=== PATIENT | male | born 1970 | race Caucasian/White ===

== ENCOUNTER 2016-04-10 22:17 | Inpatient (IN) | payer OTHER ==
[~2016-04-10] VITALS: Ht 180.3 cm; Wt 100.0 kg
[~2016-04-10 22:17] MED LIST: ACET-1175 PO
[2016-04-10] MEDS ORDERED: ONDANSETRON INJ 2 MG/ML 2 ML VIAL IV STA (22:35)
[2016-04-10] MEDS ORDERED: IBUP-1277 PO (22:36)
[2016-04-10] MEDS ORDERED: MULT-506 PO (22:36)
[2016-04-10] MEDS ORDERED: MoRPHine SULFATE 4 MG/ML 1 ML CARP\\VIAL IV ONE (22:45)
[2016-04-10] MEDS ORDERED: PANTOprazole INJ 40 MG in SYRINGE 0 ML IV ONE (22:45)
[2016-04-10] MEDS ORDERED: GI COCKTAIL PO ONE (22:45)
[2016-04-10] MEDS ORDERED: SODIUM CHLORIDE 0.9% 1000ML 1,000 ML IV ONE (22:45)
[2016-04-10 22:57] LABS: BASO % 0.2 %; BASO ABS # 0.02 K/uL (0-0.2); COMPLETE YES; HEMATOCRIT 44.3 % (42-52); IG% 0.2 %; LYMPH ABS # 2.52 K/uL (1.2-3.4); MEAN CORPUSCULAR HEMOGLOBIN 30.7 pg (25-34); MEAN CORPUSCULAR HGB CONC 36.1 g/dl (32-36); MEAN PLATELET VOLUME 9.7 fL (7.4-10.4); MONO % 7.8 %; NEUT % 65.8 %; PLATELET COUNT 195 K/uL (130-400); RED BLOOD COUNT 5.21 M/uL (4.7-6.1); WHITE BLOOD COUNT 10.07 K/uL (4.8-10.8)
[2016-04-10] MEDS ORDERED: ALUMINUM/MAGNESIUM SUSP 30 ML UDC ONE (23:04)
[2016-04-10] MEDS ORDERED: LIDOCAINE HCL 2% VISC SOLN 20 ML UDC ONE (23:04)
[2016-04-10 23:16] LABS: BUN/CREATININE RATIO 17.9 (10-20); CALCIUM 8.7 mg/dl (8.5-10.1); CREATININE 0.98 mg/dl (0.60-1.40); POTASSIUM 3.8 mmol/L (3.5-5.1)
[2016-04-10 23:26] LABS: ALB/GLOB RATIO 1.3 (0.9-2); THYROID STIMULATING HORMONE 2.71 uIu/ml (0.300-4.500)
[2016-04-10 23:28] LABS: MANUAL MICROSCOPIC REQUIRED? NO; URINE APPEARANCE CLEAR (CLEAR); URINE BILIRUBIN NEG (NEG); URINE COLOR YELLOW; URINE NITRITE NEG (NEG); URINE SPECIFIC GRAVITY 1.025 (1.000-1.030); UROBILINOGEN NEG (NEG)
[2016-04-10 23:29] LABS: REVIEW REQ? NO; ZZUR CULT IF INDIC CLEAN CATCH NO
--- NOTE | 2016-04-11 01:56 | History and Physical ---
History & Physical Date & Time of Service: Apr 11, 2016 at 01:56 Chief Complaint: Abdominal Pain Primary Care Physician: Nael Vega M.D.([facility]) History of Present Illness Source: patient This is a 45 yo Male with no significant past medical hx presented to ED with complain of worsening of abdominal pain and nausea , he has been experiencing pain along his mid and lower abdomen for past 2 weeks , intermittent sharp Pt has chronic back pain for Lumber DJD -so could not associate any pain radiation to back associated with nausea , has 1-2 episode of loose bowel movement no fever or chills , no vomiting pt associated his symptom for GI flu and did not seek any medical attention Yesterday -the pain worse in the am and progressively became constant 7/10 in the evening His appetite was OK in past 2 weeks except for last 2 days as the pain continues to get worsened and persistent denies of any symptom no dark stool or melena pt never had any GI problem in past , no prior hx of gall bladder or liver disease Drinks Alcohol rarely no ETOH intake in past 2 weeks in the ED lab work showed Lipase of 3879 , normal white count , hb normal LFT and renal function Gall bladder USG -no gall stone , layering sludge in gall bladder , no pericholecystic fluid , no gall bladder wall thickening, no biliary ductal dilatation Past Medical/Surgical History Medical Problems: (1) Headache Status: Chronic Family History Heart Disorder Father Heart Disorder Mother Social History Smoking Status: Current Every Day Smoker Marital Status: Occupational Status: employed Multi-Drug Resistant Organisms History of MDRO: No Allergies Coded Allergies: Bee Pollen (Unverified Allergy, Intermediate, UNKNOWN, 04/10/16) Uncoded Allergies: BEES (Allergy, Unknown, UNKNOWN, 10/05/13) Home Medications Scheduled Multivitamin (Multivitamin), 1 TAB PO DAILY Scheduled PRN Ibuprofen (Advil), 400-600 MG PO Q6H PRN for Pain Review of Systems Constitutional: + fatigue, + weakness Respiratory: No cough, No dyspnea at rest, No dyspnea on exertion, No hemoptysis, No problem reported, No shortness of breath, No sputum, No wheezing Cardiovascular: No PND, No chest pain, No claudication, No edema, No orthopnea , No palpitations, No problem reported Abdomen: + diarrhea, + nausea, + pain, + vomiting Musculoskeletal: + problem reported (chronic back pain ) Genitourinary - Male: No dysuria, No hematuria, No impotence, No lesions, No penile discharge, No problem reported, No urinary frequency, No urinary hesitancy, No urinary incontinence, No urinary retention, No urinary urgency Neurologic: No balance problems, No memory loss, No numbness/tingling, No paralysis, No problem reported, No vertigo, No weakness Physical Exam Vital Signs Date Time Temp Pulse Resp B/P Pulse Ox O2 Delivery O2 Flow Rate FiO2 04/11/16 01:25 70 20 140/77 94 Room Air 04/10/16 23:59 71 18 152/87 95 Room Air 04/10/16 22:21 36.6 76 18 162/97 95 Room Air General Appearance: no apparent distress Eyes: normal inspection, sclerae normal Neck: thyroid normal, no carotid bruits, trachea midline Respiratory/Chest: chest non-tender, lungs clear, no respiratory distress Cardiovascular: regular rate, rhythm, no edema, normal peripheral pulses Abdomen/GI: normal bowel sounds, soft, + tenderness (in mid and lower abdomen , no RUQ tenderness ) Extremities/Musculoskelatal: normal inspection, no calf tenderness, normal capillary refill, no pedal edema Neurologic/Psych: no motor/sensory deficits, alert, normal mood/affect, oriented x 3 Skin: normal color, warm/dry, no rash Lymphatic: no adenopathy Diagnostics Laboratory Results Results Past 24 Hours Test 04/10/16 22:47 04/10/16 22:53 04/10/16 23:18 Range/Units White Blood Count 10.07 4.8-10.8 K/uL Red Blood Count 5.21 4.7-6.1 M/uL Hemoglobin 16.0 14.0-18.0 g/dL Hematocrit 44.3 42-52 % Mean Corpuscular Volume 85.0 80-100 fL Mean Corpuscular Hemoglobin 30.7 25-34 pg Mean Corpuscular Hemoglobin Concent 36.1 32-36 g/dl Platelet Count 195 130-400 K/uL Mean Platelet Volume 9.7 7.4-10.4 fL Neutrophils (%) (Auto) 65.8 % Lymphocytes (%) (Auto) 25.0 % Monocytes (%) (Auto) 7.8 % Eosinophils (%) (Auto) 1.0 % Basophils (%) (Auto) 0.2 % Neutrophils # (Auto) 6.62 1.4-6.5 K/uL Lymphocytes # (Auto) 2.52 1.2-3.4 K/uL Monocytes # (Auto) 0.79 0.11-0.59 K/uL Eosinophils # (Auto) 0.10 0-0.5 K/uL Basophils # (Auto) 0.02 0-0.2 K/uL RDW Standard Deviation 39.3 36.4-46.3 fL RDW Coefficient of Variation 12.7 11.5-14.5 % Immature Granulocyte % (Auto) 0.2 % Immature Granulocyte # (Auto) 0.02 0.00-0.02 K/uL Sodium Level 143 136-145 mmol/L Potassium Level 3.8 3.5-5.1 mmol/L Chloride Level 104 98-107 mmol/L Carbon Dioxide Level 27 21-32 mmol/L Anion Gap 12.0 3-11 mmol/L Blood Urea Nitrogen 18 7-18 mg/dl Creatinine 0.98 0.60-1.40 mg/dl Est Creatinine Clear Calc Drug Dose 114.0 ml/min Estimated GFR () 106.7 Estimated GFR (Non- 92.1 BUN/Creatinine Ratio 17.9 10-20 Random Glucose 97 70-99 mg/dl Calcium Level 8.7 8.5-10.1 mg/dl Total Bilirubin 0.5 0.2-1 mg/dl Aspartate Amino Transf (AST/SGOT) 16 15-37 U/L Alanine Aminotransferase (ALT/SGPT) 37 12-78 U/L Alkaline Phosphatase 69 45-117 U/L Total Protein 7.5 6.4-8.2 gm/dl Albumin 4.3 3.4-5.0 gm/dl Globulin 3.2 2.5-4.0 gm/dl Albumin/Globulin Ratio 1.3 0.9-2 Lipase 3879 73-393 U/L Thyroid Stimulating Hormone (TSH) 2.710 0.300-4.500 uIu/ml Bedside Troponin I 0.000 0-0.045 ng/ml Urine Color YELLOW Urine Appearance CLEAR CLEAR Urine pH 6.0 4.5-7.5 Urine Specific [place] 1.025 1.000-1.030 Urine Protein NEG NEG Urine Glucose (UA) NEG NEG Urine Ketones NEG NEG Urine Occult Blood NEG NEG Urine Nitrite NEG NEG Urine Bilirubin NEG NEG Urine Urobilinogen NEG NEG Urine Leukocyte Esterase NEG NEG Diagnostic Radiology GALL BLADDER USG : small amount of layering sludge within the gall bladder , Ne definite gall stone , gall bladder juan are not thickened no biliary ductal dilatation Liver shows increased Echogenicity suggestive of hepatic steatosis Pancreatic duct non dilated Impression Assessment and Plan ACUTE PANCREATITIS : presented with lower abdominal pain off and on for past 2 weeks associated with nausea intermittent diarrhea last 24 hrs pain was worsened to constant 7/10 associated with poor appetite, nausea no vomiting no fever or chills Does not drink alcohol does not take any medication on a regular basis In the ED lipase was elevated > 3800 no prior hx of GI issue or gall stone /liver disease USG of liver shows layering sludge in gall bladder no evidence of acute cholecystis , no pericholecystic fluid, normal gall bladder wall , no gall stone , no biliary ductal dilatation LFT''s wnl normal white count , no fever possible due to intermittent passage of gallbladder sludge ? 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 Y/N: Yes Risk Level: Low Given or contraindicated: Melchor Flores SCD's Note In my clinical judgment this beneficiary meets acute admission criteria, established by [facility], that includes being hospitalized through two midnights. Additional Copies To Nael Vega M.D. (HUGH)
[2016-04-11] MEDS ORDERED: ALUMINUM/MAGNESIUM/SIMETH (MAALOX MAX) 30 ML UDC PO PRN (02:00)
[2016-04-11] MEDS ORDERED: ACETAMINOPHEN 325 MG TAB PO PRN (02:00)
[2016-04-11] MEDS ORDERED: MoRPHine SULFATE 2 MG/ML CARP IV PRN ×2 (02:00→12:00)
[2016-04-11] MEDS ORDERED: MAGNESIUM HYDROXIDE SUSP 30 ML UDC PO PRN (02:00)
[2016-04-11] MEDS ORDERED: ONDANSETRON INJ 2 MG/ML 2 ML VIAL IV PRN (02:00)
[2016-04-11] MEDS ORDERED: MoRPHine SULFATE 4 MG/ML 1 ML CARP\\VIAL IV PRN (02:00)
[2016-04-11 02:05] VITALS: BP 138/83; PULSE 76; TEMP 36.4; Ht 180.3 cm; Wt 100.0 kg
[2016-04-11] MEDS ORDERED: LORAZEPAM 2 MG/ML 1 ML VIAL IV PRN (02:45)
[2016-04-11] MEDS: SODIUM CHLORIDE 0.9% 1000ML 1,000 ML IV SCH ×2 (02:45→06:31)
[2016-04-11] MEDS: LORAZEPAM INJ 0.5 MG in SYRINGE 0.75 ML IV PRN ×2 (03:11→19:09)
--- NOTE | 2016-04-11 05:20 | EMERGENCY ROOM VISIT NOTE ---
History First contact with patient: 22:24 Chief Complaint: ABDOMINAL PAIN Stated Complaint: PANCREATITIS Nursing Triage Summary: Patient states has rosa experiencing minor epigastric pain the last weeks, which became severe yesterday morning. Patient states pain is intermittent, but is 9/10 when it occurs. C/o nausea. Denies vomitting and diarrhea. History of Present Illness The patient is a 45 year old male who presents to the Emergency Room with complaints of intermittent epigastric abdominal pain for the past 2 weeks. The patient states that his symptoms began to worsen yesterday. The pain is often intermittent, but very severe, and rated a 9/10 when it does occur. His pain does cause him nausea but no vomiting. He states that he did take one Zofran from an old prescription today, but this did not significantly improve his discomfort. The patient does not have a history of cardiac or pulmonary disease. No history of abdominal surgery. He does not believe his symptoms improve or worsen with position, food, or activity. The pain does not go into the lower belly or up into the neck/jaw. There is a family history of cardiac disease, but the patient himself is healthy and does not take medication on a regular basis. He rarely drinks alcohol. Review of Systems More than 10 systems were reviewed and otherwise negative with the exception of history of present illness. Past Medical/Surgical History Medical Problems: (1) Headache (2) Pancreatitis Family History Patient reports no known family medical history. Social History Smoking Status: Current Every Day Smoker Marital Status: Housing Status: lives with significant other Occupation Status: employed Current/Historical Medications Scheduled Multivitamin (Multivitamin), 1 TAB PO DAILY Scheduled PRN Ibuprofen (Advil), 400-600 MG PO Q6H PRN for Pain Allergies Coded Allergies: Bee Pollen (Unverified Allergy, Intermediate, UNKNOWN, 04/10/16) Uncoded Allergies: BEES (Allergy, Unknown, UNKNOWN, 10/05/13) Physical Exam Vital Signs Date Time Temp Pulse Resp B/P Pulse Ox O2 Delivery O2 Flow Rate FiO2 04/11/16 01:25 70 20 140/77 94 Room Air 04/10/16 23:59 71 18 152/87 95 Room Air 04/10/16 22:21 36.6 76 18 162/97 95 Room Air Pain Rating (0-10): 5.0 Physical Exam VITALS: Vitals are noted on the nurse's note and reviewed by myself. Vital signs stable. GENERAL: Well-developed, well-nourished, white male who appears mildly uncomfortable. Patient is cooperative with the examination. HEAD: Normocephalic atraumatic. HEART: Regular rate and rhythm without murmurs gallops or rubs. LUNGS: Clear to auscultation bilaterally without wheezes, rales or rhonchi. No retractions or accessory muscle use. ABDOMEN: Positive normal bowel sounds x 4. Soft with positive epigastric tenderness on palpation. No lower abdominal tenderness. No CVA tenderness. No rebound or guarding. MUSCULOSKELETAL: No muscle atrophy, erythema, or edema noted. Full range of motion without joint tenderness in all extremities. Medical Decision & Procedures ER Provider Diagnostic Interpretation: Preliminary Findings Only See Final Report For Complete Findings US GALLBLADDER: Small amount of layering sludge within the gallbladder. No definite gallstones. Gallbladder juan are not thickened. No biliary ductal dilatation. Liver demonstrates increased echogenicity, suggestive of hepatic steatosis, and measures 16.6 cm long. Visualized pancreas is hyperechoic, nonspecific. Pancreatic duct is not dilated. No hydronephrosis or evidence of stone in right kidney. Laboratory Results 04/10/16 22:47 Red Blood Count 5.21, Mean Corpuscular Volume 85.0, Mean Corpuscular Hemoglobin 30.7, Mean Corpuscular Hemoglobin Concent 36.1, Mean Platelet Volume 9.7, Neutrophils (%) (Auto) 65.8, Lymphocytes (%) (Auto) 25.0, Monocytes (%) (Auto) 7.8, Eosinophils (%) (Auto) 1.0, Basophils (%) (Auto) 0.2, Neutrophils # (Auto) 6.62, Lymphocytes # (Auto) 2.52, Monocytes # (Auto) 0.79, Eosinophils # (Auto) 0.10, Basophils # (Auto) 0.02 04/10/16 22:47 Test 04/10/16 22:47 04/10/16 22:53 04/10/16 23:18 White Blood Count 10.07 K/uL (4.8-10.8) Red Blood Count 5.21 M/uL (4.7-6.1) Hemoglobin 16.0 g/dL (14.0-18.0) Hematocrit 44.3 % (42-52) Mean Corpuscular Volume 85.0 fL (80-100) Mean Corpuscular Hemoglobin 30.7 pg (25-34) Mean Corpuscular Hemoglobin Concent 36.1 g/dl (32-36) Platelet Count 195 K/uL (130-400) Mean Platelet Volume 9.7 fL (7.4-10.4) Neutrophils (%) (Auto) 65.8 % Lymphocytes (%) (Auto) 25.0 % Monocytes (%) (Auto) 7.8 % Eosinophils (%) (Auto) 1.0 % Basophils (%) (Auto) 0.2 % Neutrophils # (Auto) 6.62 K/uL (1.4-6.5) Lymphocytes # (Auto) 2.52 K/uL (1.2-3.4) Monocytes # (Auto) 0.79 K/uL (0.11-0.59) Eosinophils # (Auto) 0.10 K/uL (0-0.5) Basophils # (Auto) 0.02 K/uL (0-0.2) RDW Standard Deviation 39.3 fL (36.4-46.3) RDW Coefficient of Variation 12.7 % (11.5-14.5) Immature Granulocyte % (Auto) 0.2 % Immature Granulocyte # (Auto) 0.02 K/uL (0.00-0.02) Anion Gap 12.0 mmol/L (3-11) Est Creatinine Clear Calc Drug Dose 114.0 ml/min Estimated GFR () 106.7 Estimated GFR (Non- 92.1 BUN/Creatinine Ratio 17.9 (10-20) Calcium Level 8.7 mg/dl (8.5-10.1) Total Bilirubin 0.5 mg/dl (0.2-1) Aspartate Amino Transf (AST/SGOT) 16 U/L (15-37) Alanine Aminotransferase (ALT/SGPT) 37 U/L (12-78) Alkaline Phosphatase 69 U/L (45-117) Total Protein 7.5 gm/dl (6.4-8.2) Albumin 4.3 gm/dl (3.4-5.0) Globulin 3.2 gm/dl (2.5-4.0) Albumin/Globulin Ratio 1.3 (0.9-2) Lipase 3879 U/L (73-393) Thyroid Stimulating Hormone (TSH) 2.710 uIu/ml (0.300-4.500) Bedside Troponin I 0.000 ng/ml (0-0.045) Urine Color YELLOW Urine Appearance CLEAR (CLEAR) Urine pH 6.0 (4.5-7.5) Urine Specific [place] 1.025 (1.000-1.030) Urine Protein NEG (NEG) Urine Glucose (UA) NEG (NEG) Urine Ketones NEG (NEG) Urine Occult Blood NEG (NEG) Urine Nitrite NEG (NEG) Urine Bilirubin NEG (NEG) Urine Urobilinogen NEG (NEG) Urine Leukocyte Esterase NEG (NEG) Medications Administered Medications (Trade) Dose Ordered Sig/Velia Route Start Time Stop Time Status Last Admin Dose Admin Sodium Chloride (Nss 1000ml) 1,000 ml @ 999 mls/hr Q1H1M ONCE IV 04/10/16 22:45 04/10/16 23:45 DC 04/10/16 23:10 999 MLS/HR Morphine Sulfate (MoRPHine SULFATE INJ) 4 mg NOW ONCE IV 04/10/16 22:45 04/10/16 22:46 DC 04/10/16 23:12 4 MG Ondansetron HCl 4 mg 4 mg NOW STAT IV 04/10/16 22:35 04/10/16 22:38 DC 04/10/16 23:11 4 MG Pantoprazole Sodium/Syringe (Protonix Inj/ Syringe) 10 ml @ 5 mls/min NOW ONCE IV 04/10/16 22:45 04/10/16 22:46 DC 04/10/16 23:17 5 MLS/MIN Lidocaine HCl (Viscous Lidocaine 2% Soln) 20 ml STK-MED ONCE .ROUTE 04/10/16 23:04 04/10/16 23:05 DC 04/10/16 23:07 10 ML Al Hydroxide/Mg Hydroxide (Maalox Susp) 30 ml STK-MED ONCE .ROUTE 04/10/16 23:04 04/10/16 23:05 DC 04/10/16 23:07 30 ML ED Course Physical exam and history were performed. Nursing notes and EMR were reviewed. Patient appears to have epigastric abdominal pain for the past 2 weeks it is worse over the past one to 2 days. He is tender in the epigastrium. IV access was established and labs were obtained. The patient was hydrated with normal saline and provided 4 mg IV morphine and 4 mg IV Zofran for comfort. He is also given a GI cocktail and 40 mg IV Protonix. The patient's blood work is as above and was reviewed. He does not have a significantly elevated white blood cell count, anemia, bandemia, or gross electrolyte imbalance. The patient's transaminases are nondiagnostic, but he does have a notably elevated lipase of nearly 4000. X-ray does not show acute process, and ultrasound does show some gallbladder sludge without obvious stone or cholecystitis. On reevaluation the patient did have some improvement, but not complete resolution of his symptoms. I did offer him additional pain medication, but he deferred this at this time. Repeat abdominal examination continues to show epigastric abdominal tenderness, and I do feel that he has a pancreatitis. The case was discussed with the on-call [facility], who agreed to evaluate patient here in the emergency department. Please see their dictation for further patient course, plan, and disposition. The chart was completed utilizing [employer] Speech Voice Recognition Software. Grammatical errors, random word insertions, pronoun errors, and incomplete sentences are an occasional consequence of this system due to software limitations, ambient noise, and hardware issues. Any formal questions or concerns about the content, text, or information contained within the body of this dictation should be directly addressed to the provider for clarification. . Medical Decision Differential diagnosis: Etiologies such as appendicitis, diverticulitis, PUD, biliary pathology, UTI, pancreatitis, obstruction, mesenteric ischemia, aortic pathology, infections, inflammatory bowel disease, renal colic, as well as others were entertained. Impression Primary Impression: Acute pancreatitis Departure Information Dispostion Still a Patient Condition FAIR Referrals Nael Vega M.D.(MAURI) (PCP) Forms Call Back Authorization, HOME CARE DOCUMENTATION FORM, IMPORTANT VISIT INFORMATION Patient Instructions My [facility]
--- NOTE | 2016-04-11 06:36 | DIAGNOSTIC IMAGING REPORT ---
ABDOMEN 2VIEW W/PA CHEST RTN CLINICAL HISTORY: epigastric abd pain pain COMPARISON STUDY: No previous studies for comparison. FINDINGS: The soft tissues, psoas shadows, renal outlines and intestinal gas pattern appear normal. There is no evidence for bowel obstruction. There is no evidence for free intraperitoneal air. No abnormal abdominal calcifications are seen. A frontal view of the chest was performed and is unremarkable. IMPRESSION: Normal study. Electronically signed by: Star Kang M.D. 04/11/2016 6:35 AM Dictated Date/Time: 04/11/2016 6:34 AM
--- NOTE | 2016-04-11 07:14 | DIAGNOSTIC IMAGING REPORT ---
Right upper quadrant ultrasound GALLBLADDER-ABD LIMITED CLINICAL HISTORY: epigastric abd pain nausea TECHNIQUE: Ultrasound COMPARISON STUDY: None FINDINGS: Trace layering sludge within the gallbladder lumen. No shadowing gallstones. Trace fatty infiltration of liver. Common bile duct 2 mm. Unremarkable pancreas and right kidney. No evidence for hydronephrosis. IMPRESSION: 1. Fatty infiltration of liver. 2. Gallbladder sludge. 3. Normal caliber bile ducts Electronically signed by: Star Kang M.D. 04/11/2016 7:13 AM Dictated Date/Time: 04/11/2016 7:11 AM
[2016-04-11 07:32] VITALS: BP 135/78; PULSE 64; TEMP 36.4; O2SAT 97
[2016-04-11] MEDS ORDERED: INFLUENZA VIRUS QUAD VACCINE 0.5 ML SYR IM. ONE (08:00)
[2016-04-11] MEDS ORDERED: INFLUENZA ADMINISTRATION CHARGE ONE (08:00)
[2016-04-11 08:33] LABS: BUN/CREATININE RATIO 14.3 (10-20); CALCIUM 8.5 mg/dl (8.5-10.1); CREATININE 0.97 mg/dl (0.60-1.40); POTASSIUM 3.7 mmol/L (3.5-5.1)
[2016-04-11 08:38] LABS: ALB/GLOB RATIO 1.3 (0.9-2)
--- NOTE | 2016-04-11 09:21 | Progress Note ---
Progress Note Patient came in with epigastric pain, lipase in 3000s--> acute pancreatitis. Epigastric pain has improved, nausea +, no vomiting, fever, chills. No prior hx of pancreatitis. No hx of alcoholism, gall stones. On exam, AAOX3, Lungs/Heart- Clear, Abdomen- Mild epigastric tenderness, soft, BS +, Ext- No edema ASSESSMENT AND PLAN : ACUTE PANCREATITIS : Unclear etiology. No hx of alcohol abuse, gall stones. -Clinically better - IV morphine last dose 5 hours ago, tylenol PRN; Lipase trending down -IV fluids, NPO, Pain mx -Work up- US- no gall stone, Sludge +, No gall stones -GI consulted CHRONIC LOW BACK PAIN : Chronic -due to lumber spine DJD -Takes NSAID;s intermittently - Hold NSAIDS FULL CODE DVT PROPHYLAXIS : low risk pt is active at baseline SCD and teds ambulate DISPOSITION : Expected to return to home when medically stable Medicine follow up with Dr Vega
[2016-04-11] MEDS: PANTOprazole INJ 40 MG in SYRINGE 0 ML IV SCH (11:50)
--- NOTE | 2016-04-11 11:51 | Gastrointestinal Consultation ---
Gastrointestinal Consultation Date of Consultation: Apr 11, 2016 Reason for Consultation: pancreatitis History of Present Illness Patient is a 45 year old male with no pertinent medical histories who is not taking any daily medications besides advil for MSK pain who is being evaluated for pancreatitis with a lipase of 4000 on admission. He reports epigastric pain that radiated to his shoulder x 1 week. This was gradual onset and had continued to get worse. He reports on Monday the pain was unbearable with associated nausea. He was having difficulty differentiating this pain from his MSK back pain so did not seek any medical attention in the early stages. He later developed loose, cyrus colored stools and the epigastric pain and nausea became constant. He denies any vomitting. There was a decrease in his appetite. No fever chills black bloody stools. No chest pain SOB. US 04/15: trace layering sludge within the gallbladder lumen. No shadowing gallstones. Trace fatty infiltration of liver. Common bile duct 2 mm. Unremarkable pancreas and right kidney. No evidence for hydronephrosis. No ETOH use or abuse No previous episodes of similar pain Daily advil use 4 tabs for aches and pain - is not reporting any upper GI symptoms at this time, Past Medical/Surgical History Medical Problems: (1) Acute pancreatitis Status: Acute Family History Patient reports no known family medical history. Social History Smoking Status: Current Every Day Smoker Marital Status: Housing Status: lives with significant other Occupation Status: employed Allergies Coded Allergies: Bee Pollen (Unverified Allergy, Intermediate, UNKNOWN, 04/10/16) Uncoded Allergies: BEES (Allergy, Unknown, UNKNOWN, 10/05/13) Current Medications Home Meds and Scripts Medications Dose Route/Sig Max Daily Dose Days Date Category Multivitamin (Multivitamins) Tab 1 Tab PO DAILY 04/10/16 Reported Advil (Ibuprofen) 200 Mg Tab 400-600 Mg PO Q6H PRN 04/10/16 Reported Review of Systems Constitutional: No chills, No fever Respiratory: No cough, No shortness of breath Cardiac: No chest pain, No edema Abdomen: + pain, No GI bleeding, No constipation, No diarrhea, No nausea, No vomiting Skin: No itch, No jaundice, No rash Physical Exam Date Time Temp Pulse Resp B/P Pulse Ox O2 Delivery O2 Flow Rate FiO2 04/11/16 08:00 Room Air 04/11/16 07:32 36.4 64 18 135/78 97 Room Air 04/11/16 02:05 36.4 76 18 138/83 Room Air 04/11/16 01:54 36.6 70 20 140/77 94 04/11/16 01:25 70 20 140/77 94 Room Air 04/10/16 23:59 71 18 152/87 95 Room Air 04/10/16 22:21 36.6 76 18 162/97 95 Room Air General Appearance: no apparent distress Eyes: PERRL ENT: hearing grossly normal Neck: supple, trachea midline Respiratory/Chest: chest non-tender, lungs clear, normal breath sounds, no respiratory distress, no accessory muscle use Cardiovascular: regular rate, rhythm, no edema, no gallop, no JVD, no murmur Abdomen: normal bowel sounds, non tender, soft, no organomegaly Neurologic/Psych: alert, normal mood/affect, oriented x 3 Skin: normal color, no jaundice, warm/dry Laboratory Results Last 24 Hours Test 04/10/16 22:47 04/10/16 22:53 04/10/16 23:18 04/11/16 07:42 White Blood Count 10.07 K/uL Red Blood Count 5.21 M/uL Hemoglobin 16.0 g/dL Hematocrit 44.3 % Mean Corpuscular Volume 85.0 fL Mean Corpuscular Hemoglobin 30.7 pg Mean Corpuscular Hemoglobin Concent 36.1 g/dl Platelet Count 195 K/uL Mean Platelet Volume 9.7 fL Neutrophils (%) (Auto) 65.8 % Lymphocytes (%) (Auto) 25.0 % Monocytes (%) (Auto) 7.8 % Eosinophils (%) (Auto) 1.0 % Basophils (%) (Auto) 0.2 % Neutrophils # (Auto) 6.62 K/uL Lymphocytes # (Auto) 2.52 K/uL Monocytes # (Auto) 0.79 K/uL Eosinophils # (Auto) 0.10 K/uL Basophils # (Auto) 0.02 K/uL RDW Standard Deviation 39.3 fL RDW Coefficient of Variation 12.7 % Immature Granulocyte % (Auto) 0.2 % Immature Granulocyte # (Auto) 0.02 K/uL Sodium Level 143 mmol/L 142 mmol/L Potassium Level 3.8 mmol/L 3.7 mmol/L Chloride Level 104 mmol/L 106 mmol/L Carbon Dioxide Level 27 mmol/L 24 mmol/L Anion Gap 12.0 mmol/L 12.0 mmol/L Blood Urea Nitrogen 18 mg/dl 14 mg/dl Creatinine 0.98 mg/dl 0.97 mg/dl Est Creatinine Clear Calc Drug Dose 114.0 ml/min 114.6 ml/min Estimated GFR () 106.7 108.1 Estimated GFR (Non- 92.1 93.2 BUN/Creatinine Ratio 17.9 14.3 Random Glucose 97 mg/dl 95 mg/dl Calcium Level 8.7 mg/dl 8.5 mg/dl Total Bilirubin 0.5 mg/dl 0.5 mg/dl Aspartate Amino Transf (AST/SGOT) 16 U/L 13 U/L Alanine Aminotransferase (ALT/SGPT) 37 U/L 30 U/L Alkaline Phosphatase 69 U/L 60 U/L Total Protein 7.5 gm/dl 6.3 gm/dl Albumin 4.3 gm/dl 3.5 gm/dl Globulin 3.2 gm/dl 2.8 gm/dl Albumin/Globulin Ratio 1.3 1.3 Lipase 3879 U/L 425 U/L Thyroid Stimulating Hormone (TSH) 2.710 uIu/ml Bedside Troponin I 0.000 ng/ml Urine Color YELLOW Urine Appearance CLEAR Urine pH 6.0 Urine Specific [place] 1.025 Urine Protein NEG Urine Glucose (UA) NEG Urine Ketones NEG Urine Occult Blood NEG Urine Nitrite NEG Urine Bilirubin NEG Urine Urobilinogen NEG Urine Leukocyte Esterase NEG Impression Patient is a 45 year old male with gradual onset epigastric pain that became constant with pain radiating to his back. There was decrease in appetite and associated nausea. On admission, lipase was 4000 with US significant for normal CBD with gallbladder sludge. Normal LFT. Differentials acute pancreatitis Plan NPO - can advance to clear liquids tomorrow if feels better LR 200 ml/hr PPI BID given hx of daily NSAID use ATTESTATION: I have performed a history and physical examination of this patient and reviewed the electronic record. Specifically, on physical examination there is mild to moderate abdominal tenderness. Most likely etiology is gallstone. I have discussed the case with BUD Lama. The above note reflects my findings, conclusions, and recommendations. Francesco Messina MD
[2016-04-11] MEDS: LACTATED RINGER'S 1000ML 1,000 ML IV SCH ×3 (12:04→21:32)
[2016-04-11 15:30] VITALS: BP 136/83; PULSE 70; TEMP 36.3; O2SAT 94
[2016-04-11 16:00] VITALS: O2SAT 94
[2016-04-12 00:04] VITALS: BP 146/81; PULSE 63; TEMP 36.4; O2SAT 93
[2016-04-12] MEDS: LACTATED RINGER'S 1000ML 1,000 ML IV SCH ×2 (02:48→08:12)
[2016-04-12 06:14] LABS: HEMATOCRIT 40.6 % (42-52); MEAN CELL VOLUME 85.3 fL (80-100); MEAN CORPUSCULAR HEMOGLOBIN 30.3 pg (25-34); MEAN CORPUSCULAR HGB CONC 35.5 g/dl (32-36); MEAN PLATELET VOLUME 9.9 fL (7.4-10.4); PLATELET COUNT 180 K/uL (130-400); RED BLOOD COUNT 4.76 M/uL (4.7-6.1); WHITE BLOOD COUNT 6.99 K/uL (4.8-10.8)
[2016-04-12 06:45] LABS: BUN/CREATININE RATIO 11.1 (10-20); CALCIUM 8.8 mg/dl (8.5-10.1); CREATININE 0.94 mg/dl (0.60-1.40); POTASSIUM 3.7 mmol/L (3.5-5.1)
[2016-04-12 06:47] LABS: ALB/GLOB RATIO 1.4 (0.9-2)
[2016-04-12 07:52] VITALS: BP 125/77; PULSE 63; TEMP 36.6; O2SAT 94
--- NOTE | 2016-04-12 11:01 | Gastroenterology Progress Note ---
Progress Note Date of Service: Apr 12, 2016 Subjective Pt evaluation today including: conversation w/ patient, physical exam, chart review, lab review 45yo admitted with first episode of pancreatitis, lipase nearly 4000 now quickly resolved to normal at 115. Pt's epigastric/abdominal pain has resolved. He wants to eat and go home. US sig. for sludge in gallbladder. Pt is a smoker but denies sig. ETOH use. No new GI c/o today. Review of Systems Constitutional: No chills, No fever, No weakness Eyes: No worsening of vision ENT: No hearing loss Respiratory: No cough Cardiac: No chest pain Abdomen: No nausea, No pain, No vomiting (denies bowel changes, abdominal pain has improved. ) Musculoskeletal: No swelling Male : No dysuria Psych: No depression symptoms Heme: No abnormal bleeding/bruising Skin: No rash Medications Current Inpatient Medications Medications (Trade) Dose Ordered Sig/Velia Route Start Time Stop Time Status Last Admin Dose Admin Ondansetron HCl 4 mg 4 mg Q6H PRN IV 04/11/16 02:00 05/11/16 01:59 Pantoprazole Sodium/Syringe (Protonix Inj/ Syringe) 10 ml @ 5 mls/min DAILY@11 IV 04/11/16 11:00 05/11/16 10:59 04/11/16 11:50 5 MLS/MIN Acetaminophen (Tylenol Tab) 650 mg Q4H PRN PO 04/11/16 02:00 05/11/16 01:59 04/11/16 08:20 650 MG Al Hydrox/Mg Hydrox/Simethicone (Maalox Max Susp) 15 ml Q4H PRN PO 04/11/16 02:00 05/11/16 01:59 Magnesium Hydroxide (Milk Of Magnesia Susp) 30 ml Q6H PRN PO 04/11/16 02:00 05/11/16 01:59 Lorazepam 0.5 mg 0.5 mg HSZ PRN IV 04/11/16 02:45 05/11/16 02:44 Lorazepam/Syringe (Ativan Inj/ Syringe) 1 ml @ 1 mls/min HS PRN IV 04/11/16 03:00 05/11/16 02:59 04/11/16 19:09 1 MLS/MIN Morphine Sulfate 2 mg 2 mg Q4HWA PRN IV 04/11/16 12:00 2/27/17 11:59 04/11/16 13:37 2 MG Lactated Ringer's (Lr 1000ml) 1,000 ml @ 200 mls/hr Q5H IV 04/11/16 12:00 05/11/16 11:59 04/12/16 08:12 200 MLS/HR Objective Vital Signs Date Time Temp Pulse Resp B/P Pulse Ox O2 Delivery O2 Flow Rate FiO2 04/12/16 08:15 Room Air 04/12/16 07:52 36.6 63 18 125/77 94 Room Air 04/12/16 00:04 36.4 63 16 146/81 93 Room Air 04/12/16 00:00 Room Air 04/11/16 16:00 94 Room Air 04/11/16 15:30 36.3 70 18 136/83 94 Physical Exam General Appearance: WD/WN, no apparent distress Eyes: PERRL ENT: normal ENT inspection Neck: supple Respiratory/Chest: lungs clear, normal breath sounds, no respiratory distress Cardiovascular: regular rate, rhythm, no edema Abdomen: normal bowel sounds, non tender, soft Extremities: normal range of motion Neurologic/Psych: alert, normal mood/affect, oriented x 3 Skin: normal color, warm/dry Laboratory Results Last 24 Hours Test 04/12/16 05:53 White Blood Count 6.99 K/uL Red Blood Count 4.76 M/uL Hemoglobin 14.4 g/dL Hematocrit 40.6 % Mean Corpuscular Volume 85.3 fL Mean Corpuscular Hemoglobin 30.3 pg Mean Corpuscular Hemoglobin Concent 35.5 g/dl RDW Standard Deviation 39.4 fL RDW Coefficient of Variation 12.7 % Platelet Count 180 K/uL Mean Platelet Volume 9.9 fL Sodium Level 141 mmol/L Potassium Level 3.7 mmol/L Chloride Level 106 mmol/L Carbon Dioxide Level 27 mmol/L Anion Gap 8.0 mmol/L Blood Urea Nitrogen 10 mg/dl Creatinine 0.94 mg/dl Est Creatinine Clear Calc Drug Dose 118.3 ml/min Estimated GFR () 112.2 Estimated GFR (Non- 96.8 BUN/Creatinine Ratio 11.1 Random Glucose 86 mg/dl Calcium Level 8.8 mg/dl Total Bilirubin 0.6 mg/dl Aspartate Amino Transf (AST/SGOT) 13 U/L Alanine Aminotransferase (ALT/SGPT) 33 U/L Alkaline Phosphatase 64 U/L Total Protein 6.6 gm/dl Albumin 3.8 gm/dl Globulin 2.8 gm/dl Albumin/Globulin Ratio 1.4 Lipase 115 U/L Assessment and Plan Acute pancreatitis - lipase and sx resolved, possibly secondary to sludge in gallbladder. Pt also a smoker, discussed smoking cessation. Advance diet - if tolerates, ok to discharge from GI standpoint. if sx recur - may need to consider cholecystectomy. watch for recurrent sx including fever, jaundice, pain etc reviewed with pt. Avoid ETOH. ok to discharge on PPI given recent NSAID use. GI baker sign off ATTESTATION: I have performed a history and physical examination of this patient and reviewed the electronic record. Specifically, on physical examination there is no abdominal tenderness. I have discussed the case with Mary العلي PA-C. The above note reflects my findings, conclusions, and recommendations. Francesco Messina MD
[2016-04-12] MEDS: PANTOprazole INJ 40 MG in SYRINGE 0 ML IV SCH (11:34)
--- NOTE | 2016-04-12 12:09 | Progress Note ---
Internal Med Progress Note Date of Service: Apr 12, 2016. Provider Documentation: SUBJECTIVE: Patient is seen and examined at bedside. States Abd pain has resolved. Denies nausea, vomiting, chest pain, SOB. Tolerating liquid diet OBJECTIVE: Vital Signs-as noted below Physical Exam: General Appearance:Moderately built and nourished, no apparent distress Head: normocephalic, Atraumatic Eyes: normal inspection, EOMI, PERRLA Neck: supple, no JVD, Trachea midline Respiratory/Chest: Normal breath sounds, CTA, No accessory muscle use Cardiovascular: S1, S2, No murmur Abdomen/GI:Soft, Non tender, Bowel sounds present Extremities/Musculoskelatal:normal inspection, no edema Neurologic/Psych:AAOX3, grossly no focal neurological deficits Skin: normal color, warm Lab data as noted below. ASSESSMENT & PLAN: ACUTE PANCREATITIS : Unclear etiology. Denies alcohol abuse, gall stones. 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 Fatty infiltration of liver. 2. Gallbladder sludge. 3. Normal caliber bile ducts Vital Signs: Date Time Temp Pulse Resp B/P Pulse Ox O2 Delivery O2 Flow Rate FiO2 04/12/16 08:15 Room Air 04/12/16 07:52 36.6 63 18 125/77 94 Room Air 04/12/16 00:04 36.4 63 16 146/81 93 Room Air 04/12/16 00:00 Room Air 04/11/16 16:00 94 Room Air 04/11/16 15:30 36.3 70 18 136/83 94 Lab Results: Results Past 24 Hours Test 04/12/16 05:53 Range/Units White Blood Count 6.99 4.8-10.8 K/uL Red Blood Count 4.76 4.7-6.1 M/uL Hemoglobin 14.4 14.0-18.0 g/dL Hematocrit 40.6 42-52 % Mean Corpuscular Volume 85.3 80-100 fL Mean Corpuscular Hemoglobin 30.3 25-34 pg Mean Corpuscular Hemoglobin Concent 35.5 32-36 g/dl RDW Standard Deviation 39.4 36.4-46.3 fL RDW Coefficient of Variation 12.7 11.5-14.5 % Platelet Count 180 130-400 K/uL Mean Platelet Volume 9.9 7.4-10.4 fL Sodium Level 141 136-145 mmol/L Potassium Level 3.7 3.5-5.1 mmol/L Chloride Level 106 98-107 mmol/L Carbon Dioxide Level 27 21-32 mmol/L Anion Gap 8.0 3-11 mmol/L Blood Urea Nitrogen 10 7-18 mg/dl Creatinine 0.94 0.60-1.40 mg/dl Est Creatinine Clear Calc Drug Dose 118.3 ml/min Estimated GFR () 112.2 Estimated GFR (Non- 96.8 BUN/Creatinine Ratio 11.1 10-20 Random Glucose 86 70-99 mg/dl Calcium Level 8.8 8.5-10.1 mg/dl Total Bilirubin 0.6 0.2-1 mg/dl Aspartate Amino Transf (AST/SGOT) 13 15-37 U/L Alanine Aminotransferase (ALT/SGPT) 33 12-78 U/L Alkaline Phosphatase 64 45-117 U/L Total Protein 6.6 6.4-8.2 gm/dl Albumin 3.8 3.4-5.0 gm/dl Globulin 2.8 2.5-4.0 gm/dl Albumin/Globulin Ratio 1.4 0.9-2 Lipase 115 73-393 U/L
[2016-04-12] MEDS ORDERED: PRT40 PO (12:11)
--- NOTE | 2016-04-12 12:17 | Discharge Summary ---
Discharge Summary Admission Date: Apr 11, 2016 at 01:30 Discharge Date: Apr 12, 2016 Discharge Disposition: Home Principal Diagnosis: ACUTE PANCREATITIS Procedures: Gall bladder USD: IMPRESSION: 1. Fatty infiltration of liver. 2. Gallbladder sludge. 3. Normal caliber bile ducts Abd/CXR: IMPRESSION: Normal study. Consultations: GI Pending Studies/Follow-Up: Follow up with on 04/19/16 at 1:00pm Seek immediate medical attention if your symptoms reoccur or worsen Avoid Alcohol use Take medications as prescribed Medication Reconciliation New Medications: Pantoprazole (Pantoprazole Sodium) 40 Mg Tab 40 MG PO QAM for 30 Days, #30 TAB 1 Refill Continued Medications: Multivitamin (Multivitamin) Tab 1 TAB PO DAILY Discontinued Medications: Ibuprofen (Advil) 200 Mg Tab 400-600 MG PO Q6H PRN for Pain Admission Information HPI (per Admitting provider): This is a 45 yo Male with no significant past medical hx presented to ED with complain of worsening of abdominal pain and nausea , he has been experiencing pain along his mid and lower abdomen for past 2 weeks , intermittent sharp Pt has chronic back pain for Lumber DJD -so could not associate any pain radiation to back associated with nausea , has 1-2 episode of loose bowel movement no fever or chills , no vomiting pt associated his symptom for GI flu and did not seek any medical attention Yesterday -the pain worse in the am and progressively became constant 7/10 in the evening His appetite was OK in past 2 weeks except for last 2 days as the pain continues to get worsened and persistent denies of any symptom no dark stool or melena pt never had any GI problem in past , no prior hx of gall bladder or liver disease Drinks Alcohol rarely no ETOH intake in past 2 weeks in the ED lab work showed Lipase of 3879 , normal white count , hb normal LFT and renal function Gall bladder USG -no gall stone , layering sludge in gall bladder , no pericholecystic fluid , no gall bladder wall thickening, no biliary ductal dilatation Physical Exam (per Admitting): General Appearance: no apparent distress Eyes: normal inspection, sclerae normal Neck: thyroid normal, no carotid bruits, trachea midline Respiratory/Chest: chest non-tender, lungs clear, no respiratory distress Cardiovascular: regular rate, rhythm, no edema, normal peripheral pulses Abdomen/GI: normal bowel sounds, soft, + tenderness (in mid and lower abdomen , no RUQ tenderness ) Extremities/Musculoskelatal: normal inspection, no calf tenderness, normal capillary refill, no pedal edema Neurologic/Psych: no motor/sensory deficits, alert, normal mood/affect, oriented x 3 Skin: normal color, warm/dry, no rash Lymphatic: no adenopathy Hospital Course ACUTE PANCREATITIS : Unclear etiology. Denies alcohol abuse, gall stones. 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 Fatty infiltration of liver. 2. Gallbladder sludge. 3. Normal caliber bile ducts Total time spent on discharge = This includes examination of the patient, discharge planning, medication reconciliation, and communication with other providers. Discharge Instructions Discharge Instructions Admission Reason for Admission: Pancreatitis Discharge Discharge Diagnosis / Problem: Acute Pancreatitis Discharge Goals Goal(s): Decrease discomfort, Improve function Activity Recommendations Activity Limitations: resume your previous activity Exercise/Sports Limitations: as tolerated . Instructions / Follow-Up Instructions / Follow-Up Follow up with on 04/19/16 at 1:00pm Seek immediate medical attention if your symptoms reoccur or worsen Avoid Alcohol use Take medications as prescribed Current Hospital Diet Patient's current hospital diet: Low Fiber Diet Discharge Diet Recommended Diet: Low Fiber Diet Pending Studies Studies pending at discharge: no Medical Emergencies . Who to Call and When: Medical Emergencies: If at any time you feel your situation is an emergency, please call 911 immediately. . Non-Emergent Contact Non-Emergency issues call your: Primary Care Provider Call Non-Emergent contact if: you have a fever, your pain is worsening, your pain is unusual for you, you have any medication questions . . "Provider Documentation" section prepared by Elmer Lemos. VTE Core Measure Inpt VTE Proph given/why not?: Melchor Flores, IDALIA's
[2016-04-12 13:26] VITALS: BP 125/77; PULSE 63; TEMP 36.6; O2SAT 94
[2016-04-13] MEDS ORDERED: PANTOprazole SOD 40 MG TAB PO SCH (09:00)
[2016-05-12] MEDS ORDERED: OMEGA XL PO (08:04)
[2016-05-12] MEDS ORDERED: DIPH-437 PO (08:04)
[2016-05-12] MEDS ORDERED: MULT-1029 PO (08:04)
== END 2016-04-12 13:40 | disposition home or self-care (01) | DRG 440 ==
LOC: ENRESERVTM → ENRESERVDT → C.EDB 22:19 → C.MED 04-11 01:30
PROVIDERS: ADMIT Hospitalist; ATTEND Internal Medicine
DX: K85.90 Acute pancreatitis without necrosis or infection, unspecified (principal); K82.8 Other specified diseases of gallbladder; R19.7 Diarrhea, unspecified; G89.29 Other chronic pain; M54.5 Low back pain; F17.210 Nicotine dependence, cigarettes, uncomplicated; Z79.1 Long term (current) use of non-steroidal anti-inflammatories (NSAID)

== ENCOUNTER 2016-05-23 07:14 | Day surgery (SDC) | payer OTHER ==
[2016-05-12 08:04] VITALS: BMI 31.0
--- NOTE | 2016-05-12 08:34 | PAT Medication Instructions ---
Service Date May 12, 2016. Current Home Medication List Acetaminophen/Diphenhydramine (Tylenol Pm), 1 TAB PO HS PRN for Sleep Multiple Vitamins W/ Minerals (One Daily Complete For Me), 1 TAB PO QAM [[place] Xl], Unknown Dose PO BID Medication Instructions For Your Scheduled Surgery - Hold the following medications starting 05/12/16 [place] Xl Unknown Dose PO BID - Hold the following medications the morning of surgery: Multiple Vitamins W/ Minerals (One Daily Complete For Me), 1 TAB PO QAM - Take the following medications as scheduled the night before surgery: Acetaminophen/Diphenhydramine (Tylenol Pm), 1 TAB PO HS PRN for Sleep If you have any questions please call us at [phone] or [phone] ( Karly) or [phone]
[2016-05-12 09:06] LABS: HEMATOCRIT 43.3 % (42-52); MEAN CELL VOLUME 86.4 fL (80-100); MEAN CORPUSCULAR HEMOGLOBIN 30.7 pg (25-34); MEAN CORPUSCULAR HGB CONC 35.6 g/dl (32-36); MEAN PLATELET VOLUME 9.5 fL (7.4-10.4); PLATELET COUNT 184 K/uL (130-400); RED BLOOD COUNT 5.01 M/uL (4.7-6.1); WHITE BLOOD COUNT 7.58 K/uL (4.8-10.8)
[2016-05-12 09:42] LABS: BASO % 0.1 %; BASO ABS # 0.01 K/uL (0-0.2); COMPLETE YES; IG% 0.4 %; LYMPH % 43.7 %; LYMPH ABS # 3.31 K/uL (1.2-3.4); MONO % 9.5 %; NEUT % 44.3 %
[~2016-05-23] VITALS: Ht 180.3 cm; Wt 102.4 kg
[~2016-05-23 07:14] MED LIST changes: -ACET-1175 PO; +CEFAZOLIN 2000 MG/60 ML D5W IV SCH; +DIPH-437 PO; +LACTATED RINGER'S 1000ML 1,000 ML IV SCH; +MULT-1029 PO; +OMEGA XL PO
[2016-05-23] MEDS ORDERED: FENTANYL CITRATE INJ 50 MCG/1 ML 2 ML VIAL ONE ×3 (07:30→10:03)
[2016-05-23] MEDS ORDERED: FLUMAZENIL 0.1 MG/1 ML 10 ML VIAL IV PRN (07:30)
[2016-05-23] MEDS ORDERED: PHENYLEPHRINE 100MCG/ML 5ML SYR IV PRN (07:30)
[2016-05-23] MEDS ORDERED: FENTANYL CITRATE INJ 50 MCG/1 ML 2 ML VIAL IV PRN (07:30)
[2016-05-23] MEDS ORDERED: ATROPINE SULFATE 0.1 MG/ML 5ML SYR IV PRN (07:30)
[2016-05-23] MEDS ORDERED: ONDANSETRON INJ 2 MG/ML 2 ML VIAL IV PRN ×2 (07:30→11:00)
[2016-05-23] MEDS ORDERED: EpHEDrine SULFATE INJ 50 MG/ML AMP IV PRN (07:30)
[2016-05-23] MEDS ORDERED: LABETALOL HCL IV 5 MG/ML 20ML IV PRN (07:30)
[2016-05-23] MEDS ORDERED: MIDAZOLAM HCL 1 MG/ML 2ML VIAL ONE (07:30)
[2016-05-23] MEDS ORDERED: HYDROmorphone INJ 2 MG/ML SYR/VIAL IV PRN (07:30)
[2016-05-23] MEDS ORDERED: NALOXONE HCL 0.4 MG/1 ML VIAL/CARP IV PRN (07:30)
[2016-05-23] MEDS ORDERED: MEPERIDINE HCL 25 MG/ML CARP IV PRN (07:30)
[2016-05-23 07:52] VITALS: BP 135/82; PULSE 73; TEMP 36.8; O2SAT 94; Ht 180.3 cm; Wt 102.4 kg
[2016-05-23] MEDS ORDERED: BUPIVACAINE 0.5 % 5 MG/1 ML MPF 30ML VIAL ONE (09:01)
[2016-05-23] MEDS ORDERED: HEPARIN SOD (PORCINE) 1000 UNIT/ML 10 ML VIAL ONE (09:01)
[2016-05-23] MEDS ORDERED: CONRAY 60% 50 ML VIAL ONE (09:01)
[2016-05-23] MEDS ORDERED: CEFAZOLIN SOD 1 GM VIAL ONE (09:01)
--- NOTE | 2016-05-23 09:04 | History & Physical Bridge Note ---
H&P Re-Evaluation Bridge Note: I have examined the patient, reviewed the History & Physical and in the interval since the performance of the History & Physical I have noted the following changes of clinical significance: No changes noted
[2016-05-23] MEDS ORDERED: PROPOFOL IV EMULSION 10 MG/ML 20 ML VIAL IV ONE (09:55)
[2016-05-23] MEDS ORDERED: LIDOCAINE HCL 2% 2 ML VIAL (20MG/ML) ONE (09:55)
[2016-05-23] MEDS ORDERED: NEOSTIGMINE METHYLSULFATE 5 MG/5 ML SYR ONE (09:55)
[2016-05-23] MEDS ORDERED: DEXAMETHASONE SOD INJ 4 MG/ML VIAL ONE (09:55)
[2016-05-23] MEDS ORDERED: ONDANSETRON INJ 2 MG/ML 2 ML VIAL ONE (09:55)
[2016-05-23] MEDS ORDERED: GLYCOPYRROLATE INJ 0.2 MG/ML VIAL ONE (09:55)
[2016-05-23] MEDS ORDERED: ROCURONIUM BROMIDE 10 MG/ML 5 ML VIAL ONE ×2 (09:55→10:06)
[2016-05-23] MEDS ORDERED: EpHEDrine SULFATE 50MG/5ML SYR ONE (10:12)
[2016-05-23] MEDS ORDERED: KETOROLAC TROMETHAMINE 30 MG/ML VIAL ONE (10:40)
--- NOTE | 2016-05-23 10:46 | DIAGNOSTIC IMAGING REPORT ---
CHOLANGIOGRAM O.R. CLINICAL HISTORY: Cholecystectomy. COMPARISON STUDY: Gallbladder ultrasound dated 04/10/2016 FLUOROSCOPY TIME: 39 seconds. 7 fluoroscopic spot images were acquired.. FINDINGS: Intraoperative cholangiogram was performed by Dr. Sheriff. Spinning Bath Patroller images are submitted for interpretation. No common bile duct filling defects are visualized. There is free flow into the duodenum. IMPRESSION: No calculi are visualized. Free flow into the duodenum. Electronically signed by: Ranjeet Ritchie M.D. 05/23/2016 10:44 AM Dictated Date/Time: 05/23/2016 10:43 AM
[2016-05-23] MEDS ORDERED: SODIUM CHLORIDE 0.9% 1000ML 1,000 ML IV SCH (10:58)
--- NOTE | 2016-05-23 10:58 | [facility] Post Operative Brief Note ---
Immediate Operative Summary Operative Date May 23, 2016. Pre-Operative Diagnosis cholelithiasis with history of pancreatitis Post-Operative Diagnosis cholelithiasis with history of pancreatitis Procedure(s) Performed Laparoscopic Cholecystectomy with Cholangiogram Surgeon Dr. Star Sheriff Frame And Scrap Crusher Surgeon(s) Eva Ashby PA-C Estimated Blood Loss 5ml Findings See dictation Specimens A. Gallbladder Drains None Anesthesia General Complication(s) None Disposition Recovery Room / PACU
[2016-05-23] MEDS ORDERED: OXYCODONE/ACETAMINOPHEN 5-325 TAB PO PRN (11:00)
[2016-05-23] MEDS ORDERED: MoRPHine SULFATE 4 MG/ML 1 ML CARP\\VIAL IV PRN (11:00)
--- NOTE | 2016-05-23 11:01 | Discharge Instructions ---
Discharge Instructions Date of Service May 23, 2016. Admission Reason for Admission: Sludge In Gallbladder Discharge Discharge Diagnosis / Problem: Same, history of pancreatitis Discharge Goals Goal(s): Decrease discomfort Activity Recommendations Activity Limitations: per Instructions/Follow-up section Lifting Limitations: no more than 10 pounds (for 2 weeks) Shower/Bathe: tomorrow (Shower only) . Instructions / Follow-Up Instructions / Follow-Up Post-Surgical ~ Discharge Instructions Activity Recommendations: - lifting limitation: (10 pounds for 2 weeks), - exercise/sex/sports limit: (nonstrenuous for 2 weeks), - driving or machine use limit: (none for 1 week), - Shower/bathe limit: (may shower beginning tomorrow) Diet: - Resume previous diet SPECIAL CARE INSTRUCTIONS: - May shower in 24 hours. Let water run over area and pat dry. - Leave steri strips on for one week. - Call the surgeon's office with any questions or concerns - - (ex. temperature higher than 101 degrees F, excessive bleeding or pain). MEDICATIONS: - Resume previous medications unless instructed otherwise by your surgeon. - Ibuprofen 600 mg every 6 hours with food - Percocet 1 every 4 hours, as needed for pain FOLLOW UP VISIT: - If not already scheduled, please call the office to schedule a two week follow-up appointment. Office number Current Hospital Diet Patient's current hospital diet: Discharge Diet Recommended Diet: Regular Diet Procedures Procedures Performed: Laparoscopic Cholecystectomy with Cholangiogram Pending Studies Studies pending at discharge: no Medical Emergencies . Who to Call and When: Medical Emergencies: If at any time you feel your situation is an emergency, please call 911 immediately. . Non-Emergent Contact Non-Emergency issues call your: Primary Care Provider, Surgeon Call Non-Emergent contact if: your pain is worsening, wound has increased redness, wound has increased pain . "Provider Documentation" section prepared by Star Sheriff. VTE Core Measure Inpt VTE Proph given/why not?: Treatment not indicated
[2016-05-23 12:00] VITALS: BP 133/73; PULSE 76; TEMP 36.5; O2SAT 95
--- NOTE | 2016-05-23 12:04 | Anesthesiology Progress Note ---
Anesthesia Post Op Note Date & Time May 23, 2016 at 12:04 Vital Signs Pain Intensity: 0 Vital Signs Past 12 Hours Date Time Temp Pulse Resp B/P Pulse Ox O2 Delivery O2 Flow Rate FiO2 05/23/16 11:50 80 16 145/85 95 Room Air 05/23/16 11:41 36.6 75 14 123/82 96 Room Air 05/23/16 11:30 74 18 141/80 94 Mask 10 05/23/16 11:20 83 18 151/78 95 Mask 10 05/23/16 11:11 36.5 90 16 139/80 96 Mask 10 05/23/16 07:52 36.8 73 20 135/82 94 Room Air Notes Mental Status: alert / awake / arousable, participated in evaluation Pt Amnestic to Procedure: Yes Nausea / Vomiting: adequately controlled Pain: adequately controlled Airway Patency, RR, SpO2: stable & adequate BP & HR: stable & adequate Hydration State: stable & adequate Anesthetic Complications: no major complications apparent
[2016-05-23 12:30] VITALS: BP 127/67; PULSE 79; TEMP 36.5; O2SAT 95
--- NOTE | 2016-05-23 14:04 | OPERATIVE REPORT ---
DATE OF OPERATION: 05/23/2016 PREOPERATIVE DIAGNOSIS: Gallbladder sludge with history of pancreatitis. POSTOPERATIVE DIAGNOSIS: Same. PROCEDURE: Laparoscopic cholecystectomy with intraoperative cholangiogram. SURGEON: Star Sheriff MD DEPARTMENT ADMINISTRATOR: Eva Vlaencia PA-C FINDINGS: The gallbladder had no adhesions. The cystic duct was not dilated. The liver was of normal size and contour and the visible bowel appeared normal. Cholangiogram was performed. There was free flow into the duodenum and into the radicles. There was no evidence of filling defect. TECHNIQUE: The patient was given a general anesthetic and the area was prepped and draped in the usual sterile fashion. Transverse incision was made below the umbilicus, carried down through the subcutaneous tissue to the fascia which was grasped with 2 Mahendra clamps and incised between. The peritoneum was identified, incised, and the introducer was placed bluntly. The abdomen was then insufflated to a pressure of 15 mmHg with carbon dioxide. The upper midline, mid clavicular, and anterior axillary introducers were placed under direct vision through small skin incisions. Traction was placed on the gallbladder and the peritoneum was opened on the infundibulum on the lateral side, peeled down towards the common bile duct. The infundibulum was dissected away from the liver on the lateral side. Similar dissection was carried out anteriorly and into the triangle of Calot, which was opened. Further division of some connective tissue and lymphatics exposed the cystic duct. I was able to establish a plane behind the cystic duct, confirming the junction of the cystic duct and gallbladder. There was a small arterial vessel draped over the anterior surface of the cystic duct which was away from the wall clipped twice proximally and once near the gallbladder and divided. The gallbladder was dissected away from the liver on the medial side allowing better mobility of the infundibulum which allowed me then to confirm the cystic duct gallbladder junction. I also was able to identify the cystic artery lying in the triangle of Calot. A clip was placed on the cystic duct near its junction with the gallbladder and it was partially transected. The cholangiocatheter was inserted and the balloon inflated. It was irrigated with no leak. Cholangiogram was performed with findings as above. The cholangiogram was removed and 2 clips were placed on the cystic duct proximally and transection was completed. There was a venous structure lying lateral to the cystic artery which was isolated, clamped twice proximally and once near the gallbladder and divided. Cystic artery was then clamped twice proximally and once near the gallbladder and divided. The gallbladder was peeled off the liver bed and in doing so, there was an additional vessel extending to the gallbladder that was most likely a posterior branch of the artery. This was clamped proximally near the gallbladder and divided. Completion of separation of the gallbladder from the liver was performed. The gallbladder was placed into an Endobag and brought out through the upper midline incision with ease. That introducer was replaced and the liver edge was elevated. The gallbladder bed of the liver was inspected and there was no bleeding. The subdiaphragmatic and subhepatic spaces were irrigated and irrigation was removed. The gas was allowed to escape and removed using suction. The fascia of the umbilical and upper midline introducer sites was closed with interrupted 0 Vicryl and skin of all the incisions was closed with 4-0 Monocryl in either an interrupted or running subcuticular fashion. Skin was anesthetized with 0.5% Marcaine. The skin was cleansed, dried, benzoin placed. Steri-Strips applied. The estimated blood loss was 5 mL. Sponge, needle and instrument counts were correct prior to closure. The patient tolerated surgical procedure without complication and was transferred to recovery. I attest to the content of the Intraoperative Record and any orders documented therein. Any exceptio ns are noted below.
== END 2016-05-23 12:54 | disposition home health service (06) ==
LOC: C.ACU 07:14
PROVIDERS: ATTEND Surgery
DX: K81.1 Chronic cholecystitis (principal); Z87.19 Personal history of other diseases of the digestive system; F17.210 Nicotine dependence, cigarettes, uncomplicated